=== PATIENT | male | born 1980 | race Two or more races ===

== ENCOUNTER 2017-04-27 08:00 | Day surgery (SDC) | payer BC ==
--- NOTE | 2017-03-29 11:00 | SIPON ---
Date/Time of Note Date/Time of Note DATE: 03/29/17 TIME: 10:59 Operative Report Preoperative Diagnosis SD turb hyp Postoperative Diagnosis same Operation/Procedure Performed septo turb red Surgeon chuy signature line learning and development assistant none Anesthesia: general Estimated blood loss: minimal Transfusion Required none Specimen to path Grafts/Implants none Complications none ELIZABETH NASH MD Mar 29, 2017 11:00
--- NOTE | 2017-04-26 19:19 | HP ---
DATE OF ADMISSION: 04/27/2017 HISTORY OF PRESENT ILLNESS: A 36-year-old male patient with a long history of nasal obstruction to breathing, treated medically without relief. Noted to have septal deviation with turbinate hypertrophy. Now admitted to the hospital for surgical correction. Past medical history, allergies, daily meds, medical conditions, prior surgery, clotting disorders, habits, family history, review of systems negative. PHYSICAL EXAMINATION: GENERAL: Well-developed, well-nourished male patient in no acute distress. HEENT: Head is normocephalic. No masses or deformities. Ears and tympanic membranes normal. Nose septal deviation with turbinate hypertrophy. Oropharynx clear. NECK: No masses or adenopathy. CHEST: Clear to P and A. HEART: Regular sinus rhythm without murmur. ABDOMEN: Soft. Bowel sounds normal. No masses or megaly. EXTREMITIES: Full range of motion without deformity. NEUROLOGIC: Physiologic. RECTAL: Not done. IMPRESSION: Septal deviation with turbinate hypertrophy. RECOMMENDATION: Admit for surgery. Dictated By: Tre Crain MD /[email or web address] /Document#: [id number]
[2017-04-27] VITALS (8 sets, daily range): BP systolic 95–133; BP diastolic 52–88; PULSE 77–100; RESP 11–20; Ht 172.7 cm; Wt 102.5 kg
[~2017-04-27] VITALS: Ht 172.7 cm; Wt 102.5 kg
[~2017-04-27 08:00] MED LIST: PROPOFOL 200 MG INJ ONE
[2017-04-27] MEDS ORDERED: DIPHENHYDRAMINE 50 MG INJ IV PRN (10:00)
[2017-04-27] MEDS ORDERED: HYDROmorphONE (0.2 MG/ML) 10ML SYG IV PRN ×3 (10:00)
[2017-04-27] MEDS ORDERED: MEPERIDINE 25 MG INJ IV PRN (10:00)
[2017-04-27] MEDS ORDERED: FENTAnyl 50 MCG/ML VIAL IV PRN ×3 (10:00)
[2017-04-27] MEDS ORDERED: PROCHLORPERAZINE 10 MG INJ IV PRN (10:00)
[2017-04-27] MEDS ORDERED: ONDANSETRON 4 MG INJ IV PRN (10:00)
[2017-04-27] MEDS ORDERED: LIDOCAINE 1% (MPF) 30 ML INJ ONE (10:29)
[2017-04-27] MEDS ORDERED: BACITRACIN/POLYMYXIN 28.35 GM OINT TOP ONE (10:29)
[2017-04-27] MEDS ORDERED: COCAINE 4% 4 ML TOP ONE (10:29)
[2017-04-27] MEDS ORDERED: EPINEPHrine 0.1 MG/ML SYG ONE (10:29)
[2017-04-27] MEDS ORDERED: EPINEPHrine 1 MG INJ ONE (10:31)
[2017-04-27] MEDS ORDERED: LIDOCAINE 2% (SDV) 5 ML INJ ONE (11:08)
[2017-04-27] MEDS ORDERED: ROCURONIUM 50 MG INJ ONE (11:08)
[2017-04-27] MEDS ORDERED: PROPOFOL 20 ML ONE ×2 (11:08)
[2017-04-27] MEDS ORDERED: HYDROmorphONE 2 MG/ML SYG ONE (11:08)
[2017-04-27] MEDS ORDERED: FAMOTIDINE 20 MG INJ ONE (11:08)
[2017-04-27] MEDS ORDERED: DEXAMETHASONE 4 MG/ML 1 ML INJ ONE (11:08)
[2017-04-27] MEDS ORDERED: MIDAZOLAM 1 MG/ML 2 ML INJ ONE (11:08)
[2017-04-27] MEDS ORDERED: SUCCINYLCHOLINE CHLORIDE 100 MG/5 ML SYG IV ONE (11:08)
[2017-04-27] MEDS ORDERED: FENTAnyl 50 MCG/ML VIAL ONE (11:08)
[2017-04-27] MEDS ORDERED: ONDANSETRON 4 MG INJ ONE (11:08)
[2017-04-27] MEDS ORDERED: PHENYLephrine (100 MCG/ML) 5ML SYG ONE (11:14)
[2017-04-27] MEDS ORDERED: SUGAMMADEX SODIUM 200 MG/2 ML VIAL IV ONE ×2 (11:34→11:40)
--- NOTE | 2017-04-27 11:55 | SIPON ---
Date/Time of Note Date/Time of Note DATE: 04/27/17 TIME: 11:52 Operative Report Preoperative Diagnosis septal deviatiion turbinater hyprtytophy Postoperative Diagnosis same Operation/Procedure Performed septo turb red Surgeon chuy signature line activity assistant none Anesthesia: general Estimated blood loss: minimal Transfusion Required none Specimen to path Grafts/Implants none Complications none ELIZABETH NASH MD Apr 27, 2017 11:55
--- NOTE | 2017-04-27 15:33 | OPR ---
DATE OF OPERATION: 04/27/2017 PREOPERATIVE DIAGNOSES: 1. Turbinate hypertrophy. 2. Septal deviation. POSTOPERATIVE DIAGNOSES: 1. Turbinate hypertrophy. 2. Septal deviation. PROCEDURE PERFORMED: Septoplasty with turbinate reduction. OPERATION: Patient brought to the operating room under parental sedation, general anesthesia by oral endotracheal intubation. Sterile sheets and drapes applied. Nose anesthetized topically with 5 percent cottonoid cocaine and xylocaine 1 percent, epinephrine 1:200,000. The inferior turbinate bones were lightly crushed and outfractured. The septum was noted to be grossly deviated to the right with total right airway obstruction, a left septal hemitransfixion incision was made. Septal flaps were elevated bilaterally exposing the quadrilateral cartilage and the perpendicular plate of the ethmoid and vomer bones. The quadrilateral was detached from the crest of the pre maxilla and from the bony cartilaginous junction. Strips of cartilage were removed inferiorly and posteriorly and the remaining cartilage vertically through and through cut to correct cartilaginous obstruction. A bone marine spur on the right was mobilized through subperiosteal tunnels and removed with forceps. The nose was then suctioned. The incision was closed with interrupted 4-0 chromic. Nose was packed with half-inch Adaptic bacitracin gauze. A drip pad was applied and procedure terminated. Patient awakened and extubated in the operating room, returned to recovery in excellent condition. ESTIMATED BLOOD LOSS: Nil. COMPLICATIONS: None. Dictated By: Tre Crain MD /[email or web address] /Document#: [id number]
== END 2017-04-27 13:39 | disposition home or self-care (01) ==
LOC: SDS 08:00
PROVIDERS: ATTEND Otolaryngology Otolaryngology/Facial Plastic Surgery
DX: J34.2 Deviated nasal septum (principal); J34.3 Hypertrophy of nasal turbinates; E66.9 Obesity, unspecified; Z68.34 Body mass index [BMI] 34.0-34.9, adult
CPT/HCPCS: 30140; 30520; 88300; J0171; J1100; J1170; J2250; J2370; J2405; J3010; Z7512; Z7610